=== PATIENT | female | born 1950 | race Caucasian/White ===

== ENCOUNTER → 2018-04-29 | Outpatient (CLI) | payer MEDICARE ==
--- NOTE | 2018-04-29 10:57 | MM ---
Reason for exam: screening (asymptomatic). Last mammogram was performed 2 years and 4 months ago. History: Patient is postmenopausal and is nulliparous. Physical Findings: A clinical breast exam by your physician is recommended on an annual basis and results should be correlated with mammographic findings. MG 3D Screening Mammo W/Cad Bilateral CC and MLO view(s) were taken. Prior study comparison: December 28, 2015, bilateral MG screening mammo w CAD. November 12, 2014, bilateral MG screening mammo w CAD. The breast tissue is almost entirely fat. No significant changes when compared with prior studies. ASSESSMENT: Negative, BI-RAD 1 RECOMMENDATION: Routine screening mammogram of both breasts in 1 year.
--- NOTE | 2018-04-29 14:45 | BD ---
EXAMINATION TYPE: Axial Bone Density DATE OF EXAM: 04/29/2018 COMPARISON: 12.28.2015 CLINICAL HISTORY: 68 YR OLD FEMALE.....ICD-10 CODE: M19.90 OSTEOARTHRITIS Height: 64.5 Weight: 266 FRAX RISK QUESTIONS: Family History (Parent hip fracture): YES History of Fracture in Adulthood: YES RISK FACTORS HISTORY OF: HX OF ANKLE FX....>52 YRS OLD History of Wrist SURGERY: BILAT CARPAL TUNNEL SURGERY Surgery to BOTH HIPS....BILAT THR Family History of Osteoporosis: YES, HER MOTHER AND AUNT, WITH FRACTURES Diet low in dairy products/other sources of calcium: YES A BIT LOW Postmenopausal woman: YES, AT AGE 50 Lost more than 2 inches in height since high school: YES MEDICATIONS: Thyroid Medications: YES, SYNTHROID, FOR 20 YRS Additional Medications: BP MEDS, CELEXA, ONE A DAY MULTIVITAMIN Additional History: BILAT THR, TKR, RT SHOULDER REPLACEMENT, AND BILAT WRIST SURGERY EXAM MEASUREMENTS: Bone mineral densitometry was performed using the Semmle System. Bone mineral density as measured about the Lumbar spine is: ----- L1-L4(G/cm2): 1.280 T Score Values are as follows: ----- L1: 0.9 ----- L2: 1.1 ----- L3: 0.9 ----- L4: 0.4 ----- L1-L4: 0.8 Bone mineral density has: Decreased -6.5% since study of: 12.28.2015 BOTH HIPS REPLACED.....NO HIPS SCANNED Bone mineral density about the L Wrist (g/cm2): 0.630 T Score values are as follows: -----Dist. R+U: 0.9 -----Prox. R+U: 0.1 -----Radius total: -0.4 Bone mineral density FIRST WRIST SCAN FOR PATIENT....PLEASE NOTE PRIOR CARPAL TUNNEL SURGERY TO B OTH WRISTS IMPRESSION: Normal (Values between +1 and -1 indicate normal bone mass). Consider repeating this study in 5 year s or sooner if there is some new clinical indication. NOTE: T-SCORE=SD OF THE YOUNG ADULT MEAN.
== END | disposition home or self-care (01) ==
LOC: RADMAMWWP 07:15
PROVIDERS: ATTEND Internal Medicine
DX: Z12.31 Encounter for screening mammogram for malignant neoplasm of breast (principal); M19.90 Unspecified osteoarthritis, unspecified site
CPT/HCPCS: 77063; 77067; 77080

== ENCOUNTER → 2020-03-03 | Outpatient (CLI) | payer MEDICARE ==
--- NOTE | 2020-03-04 13:34 | ECHOF ---
Referral Reason:I35.0 Nonrheumatic aortic (valve) stenosis MEASUREMENTS -------- HEIGHT: 170.2 cm WEIGHT: 118.8 kg BP: RVIDd: 4.2 cm (< 3.3) IVSd: 1.7 cm (0.6 - 1.1) LVIDd: 5.2 cm (3.9 - 5.3) LVPWd: 1.3 cm (0.6 - 1.1) IVSs: 1.5 cm LVIDs: 3.4 cm LVPWs: 2.0 cm LAESV Index (A-L): 52.77 ml/m Ao Diam: 2.5 cm (2.0 - 3.7) AV Cusp: 1.8 cm (1.5 - 2.6) MV EXCURSION: 18.742 mm (> 18.000) MV EF SLOPE: 65 mm/s (70 - 150) EPSS: 0.3 cm MV E Miguelito: 0.75 m/s MV DecT: 162 ms MV A Miguelito: 1.08 m/s MV E/A Ratio: 0.70 AR PHT: 393 ms RAP: 5.00 mmHg RVSP: 39.29 mmHg FINDINGS -------- Sinus rhythm. This was a technically adequate study. The left ventricular size is normal. There is moderate concentric left ventricular hypertrophy. O verall left ventricular systolic function is normal with, an EF between 55 - 60 %. Mitral Doppler i nflow pattern suggests diastolic filling abnormality 11.46. The right ventricle is moderately enlarged. LA is severely dilated >40 ml/m2 The right atrium is mildly enlarged. Interatrial and interventricular septum intact. The aortic valve is trileaflet and appears structurally normal. Trace to mild aortic regurgitation. There is no evidence of aortic stenosis. Mild mitral regurgitation is present. Mild tricuspid regurgitation present. There is mild pulmonary hypertension. The right ventricular systolic pressure, as measured by Doppler, is 39.29mmHg. There is no pulmonic regurgitation present. The aortic root size is normal. The inferior vena cava is mildly dilated. There is no pericardial effusion. CONCLUSIONS -------- 1. The left ventricular size is normal. 2. There is moderate concentric left ventricular hypertrophy. 3. Overall left ventricular systolic function is normal with, an EF between 55 - 60 %. 4. Mitral Doppler inflow pattern suggest diastolic filling abnormality 11.46. 5. The right ventricle is moderately enlarged. 6. LA is severely dilated >40 ml/m2 7. The right atrium is mildly enlarged. 8. Trace to mild aortic regurgitation. 9. Mild mitral regurgitation is present. 10. Mild tricuspid regurgitation present. 11. There is mild pulmonary hypertension. 12. The right ventricular systolic pressure, as measured by Doppler, is 39.29mmHg. 13. The inferior vena cava is mildly dilated. SCIENCE ANALYST: Radha Medina RDCS
== END | disposition home or self-care (01) ==
LOC: RADECHMAIN 15:33
PROVIDERS: ATTEND Internal Medicine
DX: I08.1 Rheumatic disorders of both mitral and tricuspid valves (principal); I27.20 Pulmonary hypertension, unspecified
CPT/HCPCS: 93306

== ENCOUNTER → 2020-07-06 | Outpatient (CLI) | payer MEDICARE ==
--- NOTE | 2020-07-06 11:46 | CONS ---
CONSULTATION DATE OF SERVICE: 07/06/2020. A 70-year-old lady who has been evaluated in the Sleep Center for possible obstructive sleep apnea-hypopnea syndrome. HISTORY OF PRESENT ILLNESS/SLEEP-WAKE EVALUATION: Patient usual sleep schedule from 11:30 p.m. until 7:30 a.m. Sometimes she has problems with falling asleep, although no TV in bedroom. She sleeps on the side position presently by herself so no clear information about snoring, but she wakes up from sleep 2 times with nocturia. During the day, she feels sleepiness. [place] Sleepiness Scale significantly increased to 12, she sometimes take nap in the afternoon time. She also has depression and claustrophobia. PAST MEDICAL HISTORY: Positive for hypertension, diabetes, depression, hyperlipidemia, hypothyroidism. PAST SURGICAL HISTORY: Bilateral knee replacement, bilateral hip replacement, right shoulder replacement, cholecystectomy. MEDICATIONS: Metformin 1000 mg twice a day, benazepril 20 mg once a day, atorvastatin 5 mg once a day, p.o. 30 mg once a day, Citalopram 30 mg once a day, Levothyroxine 150 mcg once a day. SOCIAL HISTORY: Positive for smoking in the past; quit about 30 years ago. Smoked about 5 pack years. Alcohol consumption rarely. FAMILY HISTORY: Fibromyalgia, asthma, pneumonia, diabetes. REVIEW OF SYSTEMS: Multiple awakenings from sleep with nocturia, sleepiness during the day. PHYSICAL EXAM: lady without distress, BP 138/61, HR 68, RR 15, height 5 feet 6 inches, weight 299 pounds, body mass index 48.2, temperature 96.0, oxygen saturation at room air 99%. OROPHARYNX: Extremely low position of soft palate. Mallampati 4. Wide neck 17.5 inches in circumference. ABDOMEN: Obese. LUNGS: Clear to percussion and to auscultation. Good air exchange. No wheezing or rhonchi. HEART: S1, S2 regular. No murmurs, gallops, or rubs. EXTREMITIES: No clubbing or cyanosis. FIBERGLASS ROVING WINDER: Awake, alert, and oriented X3. Cranial nerves 2 to 7 intact. There is no fasciculation or atrophy. noted. No focal deficits observed. IMPRESSION: 1. No information about snoring. Patient sleeps by herself, extremely low position of soft palate, Mallampati 4, multiple awakenings from sleep. Wide neck 17.5 inches sleepiness. [place] Sleepiness Scale increased to 12. Obstructive sleep apnea- hypopnea syndrome. 2. Obesity. BMI 48.2. 3. History of hypertension. 4. Diabetes mellitus. 5. History of depression. 6. Hyperlipidemia. 7. Hypothyroidism. 8. Status post bilateral knee replacement. 9. Status post bilateral hip replacement. 10.Status post right shoulder replacement. 11.Status post cholecystectomy. PLAN: 1. Polysomnography for evaluation of patient's breathing during sleep. 2. CPAP/BiPAP titration if sleep study confirms obstructive sleep apnea-hypopnea syndrome. 3. Preferable position during sleep on the side. 4. No driving if patient feels any sleepiness. 5. I will see patient for follow up visit to explain results of testing and following plan. Thank you very much for referring this patient for consultation. Sincerely, Reynaldo Doss MD, PhD, FAASM Diplomat of [place] [employer] [place] [employer] Senior Financial Accountant of [facility] [place] MMODL / PARISAN: [id number] /
== END | disposition home or self-care (01) ==
LOC: SLEEP 10:06
PROVIDERS: ATTEND Internal Medicine
DX: R53.83 Other fatigue (principal); E03.9 Hypothyroidism, unspecified; E11.9 Type 2 diabetes mellitus without complications; E66.9 Obesity, unspecified; Z68.42 Body mass index [BMI] 45.0-49.9, adult; E78.5 Hyperlipidemia, unspecified; F32.9 Major depressive disorder, single episode, unspecified; I10 Essential (primary) hypertension; Z79.84 Long term (current) use of oral hypoglycemic drugs; Z79.899 Other long term (current) drug therapy; Z83.3 Family history of diabetes mellitus; Z87.891 Personal history of nicotine dependence; Z96.611 Presence of right artificial shoulder joint; Z96.643 Presence of artificial hip joint, bilateral; Z96.653 Presence of artificial knee joint, bilateral
CPT/HCPCS: 99211

== ENCOUNTER → 2020-11-03 | Outpatient (CLI) | payer MEDICARE ==
--- NOTE | 2020-11-04 05:55 | SFUN ---
SLEEP CENTER FOLLOW UP NOTE DATE OF SERVICE: 11/03/2020 INTERVAL HISTORY: A 70-year-old lady who has been followed in Sleep Center for treatment of obstructive sleep apnea-hypopnea syndrome. Recently patient had polysomnogram which showed moderate obstructive sleep apnea and I discussed results of sleep study with the patient in detail and then she had a CPAP titration. I also described results of titration. Then she received her CPAP unit and today is her first visit after she was started on treatment with CPAP. The patient is able to use CPAP equipment every night and feels better while she is using her CPAP at night. [place] Sleepiness Scale today is 8. I checked her CPAP unit. CPAP pressure in the range 5 to 15 with average pressure is 14.2, usage is 28/30 nights for more than 4 hours with average usage 7.9 hours per night. Leak is 7 L/minute. Apnea-hypopnea index is 4, which is in normal range. CURRENT MEDICATIONS: Metformin 1000 mg twice a day, benazepril 20 mg once a day, Atorvastatin 5 mg once a day, citalopram 30 mg once a day, levothyroxine 150 mcg once a day. PHYSICAL EXAMINATION: GENERAL: Patient in no distress. BP 158/56, HR 65, RR 15, weight 293.4, temperature 97.1. Oxygen saturation at room air 99%. HEENT: PERRLA, EOMI. Oropharynx extremely low position of soft palate. Mallampati IV. NECK: Supple, no JVD. Thyroid is not palpable. LUNGS: Clear to percussion and to auscultation. Good air exchange. No wheezing or rhonchi. HEART: S1, S2 regular. No murmurs, gallops, or rubs. ABDOMEN: Obese. Soft and nontender. Bowel sounds are present. No organomegaly appreciated. EXTREMITIES: No clubbing or cyanosis. FARM MARKETER: Awake, alert, and oriented X3. Cranial nerves 2 to 7 intact. There is no fasciculation or atrophy. noted. No focal deficits observed. IMPRESSION: 1. Moderate obstructive sleep apnea-hypopnea syndrome; apnea-hypopnea index 21.7 with oxygen desaturation to 78.7%, on control with CPAP. The patient demonstrated great compliance with treatment, benefitting from treatment. 2. Obesity. 3. History of hypertension. 4. Diabetes mellitus. 5. History of depression. 6. Hyperlipidemia. 7. Hypothyroidism. 8. Status post bilateral knee replacement. 9. Status post bilateral hip replacement. 10.Status post right shoulder replacement. 11.Status post cholecystectomy. PLAN: PLAN 1. Patient will continue to use PAP equipment every night for the whole night. 2. Sleep hygiene with regular time in bed for at least 7-1/2 to 8 hours. 3. Precautions related to driving. No driving if feeling sleepiness. 4. I will maintain all necessary prescription for PAP supplies including mask, tube, filters. 5. Watching weight. 6. Follow-up visit in 6 months or earlier if patient has any problems. Thank you very much for allowing me to participate in the management of your patient. Sincerely, Reynaldo Doss MD, PhD, FAASM Diplomat of [employer] Director Of Corporate Responsibility of [facility] [place] MMLOCOL / PERRY: [id number] /
== END | disposition home or self-care (01) ==

== ENCOUNTER → 2021-05-11 | Outpatient (CLI) | payer MEDICARE ==
--- NOTE | 2021-05-11 18:20 | SFUN ---
SLEEP CENTER FOLLOW UP NOTE DATE OF SERVICE: 05/11/2021 This 71-year-old lady has been followed in Sleep Center for treatment of obstructive sleep apnea-hypopnea syndrome. The patient continues to use her CPAP equipment every night for the whole night. She sleeps better with the machine. She does not feel sleepiness during the day anymore. [place] Sleepiness Scale today is 5. I checked her CPAP unit. It is in automatic regimen. Range of the pressure is 5 to 15, average pressure 13.8. Usage was 30/30 nights for more than 4 hours, average 9 hours per night. Apnea-hypopnea index is 4.7. Sometimes for several days, apnea-hypopnea index was above normal, in the range of 10. MEDICATIONS: 1. Metformin 1000 mg twice a day. 2. Benazepril 20 mg once a day. 3. Atorvastatin 5 mg once a day. 4. Pioglitazone 30 mg once a day. 5. Citalopram 30 mg once a day. 6. Levothyroxine 150 mcg 5 times per week. PHYSICAL EXAMINATION: GENERAL: Pleasant patient in no distress. VITAL SIGNS: BP 129/71, HR 62, RR 15, height 5 feet 6 inches, weight 281.2, temperature 96.8, oxygen saturation at room air 96%. Body mass index 45.3. HEENT: PERRLA, EOMI, evaluation of oropharynx showed tongue protrudes midline. Extremely low position of soft palate; Mallampati IV. NECK: Supple, no JVD. Thyroid is not palpable. LUNGS: Clear to percussion and to auscultation. Good air exchange. No wheezing or rhonchi. HEART: S1, S2 regular. No murmurs, gallops, or rubs. ABDOMEN: Obese. EXTREMITIES: No clubbing or cyanosis. PICK UP TRUCK DRIVER: Awake, alert, and oriented X3. Cranial nerves 2 to 7 intact. There is no fasciculation or atrophy. noted. No focal deficits observed. IMPRESSION: 1. Obstructive sleep apnea-hypopnea syndrome. Patient demonstrated 100% compliance with treatment, benefitting from treatment. Sometimes she had a slightly increasing apnea-hypopnea index. 2. Obesity. 3. History of hypertension. 4. Diabetes mellitus. 5. History of depression. 6. Hyperlipidemia. 7. Hypothyroidism. 8. Status post bilateral knee replacement. 9. Status post bilateral hip replacement. 10.Status post right shoulder replacement. 11.Status post cholecystectomy. PLAN: 1. I changed pressure in the machine to the range 5 to 17. 2. Patient will continue to use PAP equipment every night for the whole night. 3. Sleep hygiene with regular time in bed for at least 7-1/2 to 8 hours. 4. Precautions related to driving. No driving if feeling sleepiness. 5. I will maintain all necessary prescription for PAP supplies including mask, tube, filters. 6. Watching weight. 7. Follow-up visit in 6 months or earlier if patient has any problems. Thank you very much for allowing me to participate in the management of your patient. Sincerely, Reynaldo Doss MD, PhD, FAASM Diplomat of [place] [employer] Sleep Medicine Board of [place] [employer] Shank Paperer of [facility] [place] ARLENE / PERRY: [id number] /
== END ==
LOC: SLEEP 14:56
PROVIDERS: ATTEND Internal Medicine
DX: G47.33 Obstructive sleep apnea (adult) (pediatric) (principal); E66.9 Obesity, unspecified; E11.9 Type 2 diabetes mellitus without complications; I10 Essential (primary) hypertension; E78.5 Hyperlipidemia, unspecified; E03.9 Hypothyroidism, unspecified; Z96.643 Presence of artificial hip joint, bilateral; Z96.653 Presence of artificial knee joint, bilateral; Z90.49 Acquired absence of other specified parts of digestive tract; Z96.611 Presence of right artificial shoulder joint; Z68.42 Body mass index [BMI] 45.0-49.9, adult; Z99.89 Dependence on other enabling machines and devices; Z79.84 Long term (current) use of oral hypoglycemic drugs; Z79.899 Other long term (current) drug therapy

== ENCOUNTER → 2021-12-05 | Outpatient (CLI) | payer MEDICARE ==
--- NOTE | 2021-12-05 15:41 | P.CNPUL ---
History of Present Illness Consult date: 12/05/21 Reason for consult: obstructive sleep apnea History of present illness: This is a 71-year-old female patient, obese, with a diagnosis of obstructive sleep apnea who is coming to the sleep center to establish her care for sleep apnea with me. The patient already has been diagnosed having obstructive sleep apnea. The patient had a initial polysomnogram on 07/19/2020 and the patient was diagnosed having moderate severe JOHANNY with an AHI of 21. The patient also had excessive number of periodic limb movement activity. Based on that, the patient was given a CPAP titration and the patient was started on CPAP therapy and the patient was offered an APAP unit which is currently set at a minimum pressure of 5 and a maximum pressure of 17.. On today's evaluation, the patient reports improvement in her sleep quality while being on CPAP therapy. To the medical Regimen Utilizing Her Machine Every Night. Her Machine Is Functional and She Is Using a Simplus Fullface Mask. I Noted That the patient's periodic limb movement improved while on CPAP therapy. Currently, she is not having any symptoms of restlessness in her lower extremities. Her sleep is not fragmented. She is able to generate and maintaining sleep without any major difficulties. No snoring. Note that the patient does not have any back particular the patient's from The case of esophageal cancer several years back. She is currently living alone. She goes to bed around 10 PM, wakes up 7 AM in the morning. She is averaging about 8 hours of sleep. She is able to initiate and maintain sleep without any major difficulties. Her current Cop[place] score is at 10. She drinks around 4-5 cups of coffee in the morning. No sleep paralysis. No hallucinations. No cataplexy. No naps during the day. The patient brought her CPAP machine and I checked a settings and the patient is currently set at a APAP mode, 5/17 cm of water. Based on his 30 day compliance evaluation, the patient has utilized the machine 28 out of 30 days on average of 8.5 hours per night and average pressure delivered vitamin she is around 14.5 cm of water. Leak is minimal at 5 L per minute. No nighttime shortness of breath. No chest pain. No breathing difficulties. No heartburn. No other cardiovascular complications for now. Her weight has remained stable. Review of Systems Eyes: denies as per HPI, denies blurred vision, denies bulging eye, denies decreased vision, denies diplopia, denies discharge, denies dry eye, denies irritation, denies itching, denies pain, denies photophobia, denies loss of peripheral vision, denies loss of vision, denies tunnel vision/blind spots Ears: deny: decreased hearing, ear discharge, earache, tinnitus Ears, nose, mouth and throat: Reports as per HPI Breasts: absent: as per HPI, change in shape, gynecomastia, masses, nipple discharge, pain, skin changes, swelling Cardiovascular: Reports as per HPI Respiratory: Reports as per HPI Gastrointestinal: Reports as per HPI Genitourinary: Reports as per HPI Menstruation: Reports as per HPI Musculoskeletal: Reports as per HPI Musculoskeletal: absent: ankle pain, ankle stiffness, ankle swelling Integumentary: Reports as per HPI Neurological: Reports as per HPI Psychiatric: Reports as per HPI Endocrine: Reports as per HPI Hematologic/Lymphatic: Reports as per HPI Allergic/Immunologic: Reports as per HPI Past Medical History Past Medical History: Diabetes Mellitus, Liver Disease, Sleep Apnea/CPAP/BIPAP, Thyroid Disorder Additional Past Medical History / Comment(s): obstructive sleep apnea with an AHI of 21, hypothyroidism, diabetes mellitus, hypertension and obesity. Past Surgical History: Cholecystectomy, Orthopedic Surgery Additional Past Surgical History / Comment(s): right shoulder replacement, right knee replacement, left knee replacement, bilateral hip replacement, gallbladder surgery/cholecystectomy Medications and Allergies Home Medications and Allergies Comment(s): levothyroxine 150 g 5 days a week Metformin 1000 mg, 1 tablet by mouth twice a day Citalopram 30 mg once a day Benazepril 20 mg by mouth daily Lipitor 5 mg by mouth daily Pioglitazone 15 mg by mouth daily Aspirin 81 mg by mouth daily Physical Exam BP is 121/73 with a pulse of 61 and the respiration of 18 temperature of 97 1 and saturation 98% on room air. Weight is 277 and the patient has a body mass index of 45.3 and the patient's Copemish score is at 10. The neck circumference is 17-3/4 of an inch. The patient appeared well nourished and normally developed. Vital signs as documented. Head exam is unremarkable. No scleral icterus or corneal arcus noted. Neck is without jugular venous distension, thyromegaly, or carotid bruits. Carotid upstrokes are brisk bilaterally. Lungs are clear to auscultation and percussion. Cardiac exam reveals the PMI to be normally sized and situated. Rhythm is regular. First and second heart sounds normal. No murmurs, rubs or gallops. Abdominal exam reveals normal bowel sounds, no masses, no organomegaly and no aortic enlargement. Extremities are nonedematous and both femoral and pedal pulses are normal.Examination of the skin revealed no evidence of significant rashes, suspicious appearing nevi or other concerning lesio ns.Neurologically, the patient is awake and alert and the patient does not have any focal neurological deficit. Cranial nerves are essentially intact. Assessment and Plan Plan: 1 obstructive sleep apnea, moderately severe, adequately treated with an APAP, 5/17 cm of water. 2 hypersomnia, recovered while on CPAP therapy. 3 obesity with a BMI of 45.3 4 hypothyroidism 5 diabetes mellitus type 2 6. Reglan movement activity, asymptomatic, no signs of any peripheral neuropathy Plan Check the patient's CPAP unit. No need for any further adjustments. Continue with the APAP mode. Keep the patient is Simplus fullface mask. Encourage weight loss. Optimize sleep hygiene measures. Treatment is successful for now. Refills will be given. The patient will see back on an annual basis regarding obstructive sleep apnea. Answered all her questions to her satisfaction.
== END ==
LOC: SLEEP 14:29
PROVIDERS: ATTEND Internal Medicine Critical Care Medicine
DX: G47.33 Obstructive sleep apnea (adult) (pediatric) (principal); Z99.89 Dependence on other enabling machines and devices; E03.9 Hypothyroidism, unspecified; E11.9 Type 2 diabetes mellitus without complications; E66.9 Obesity, unspecified; I10 Essential (primary) hypertension; Z68.42 Body mass index [BMI] 45.0-49.9, adult; Z79.84 Long term (current) use of oral hypoglycemic drugs; Z79.890 Hormone replacement therapy
CPT/HCPCS: 99211

== ENCOUNTER → 2022-08-13 | Outpatient (CLI) | payer MEDICARE ==
--- NOTE | 2022-08-13 11:52 | XR ---
EXAMINATION TYPE: XR chest 2V DATE OF EXAM: 08/13/2022 COMPARISON: NONE HISTORY: Dyspnea on exertion. TECHNIQUE: Frontal and lateral views of the chest are obtained. FINDINGS: Mild linear scarring or atelectasis in the left mid lung anteriorly is present. Right lung is clear. The cardiac silhouette size is mildly enlarged. Surgical change to the right shoulder is partially imaged. There are old healed fractures of the posterior-lateral right fifth through seventh ribs. IMPRESSION: Mild cardiomegaly and Chronic changes without suspicious acute pulmonary process.
== END | disposition home or self-care (01) ==
LOC: RADXRMAIN 11:30
PROVIDERS: ATTEND Family Medicine
DX: I51.7 Cardiomegaly (principal); R06.09 Other forms of dyspnea
CPT/HCPCS: 71046

== ENCOUNTER → 2022-11-14 | Outpatient (CLI) | payer MEDICARE ==
--- NOTE | 2022-11-14 11:40 | CA ---
Stress Echo Report Gogo Jacobson Age: 72 Gender: F : 1950 Exam Date: 11/14/2022 10:37 Exam Location: [facility] Ht (in): 67 Wt (lb): 278 Ordering Physician: Mickey Ierne MD Referring Physician: MICHELLE,, Tax Commissioner: Radha Medina RDCS Technologist Procedure CPT: Indication: R06.09 Dyspnea ICD-9 Codes: Rhythm: Patient History: Smoker, Diabetes mellitus, Hypertension, Hyperlipidemia Cardiac Medications: Medications in past 24 hours: Contrast: Lumason Stress Results Protocol: Patric Total dose(mL): 5 Exercise Duration (min:sec): 3:[address] Depression (mm): Angina Score: Bonilla Score: METS: 4.2 Resting HR: 80 Resting BP: 151 / 54 Peak HR: 130 Peak BP: 180 / 58 Max Predicted HR: 150 87 % Max Predicted HR Target HR: 128 Double Product: [id number] Stress Summary: The patient's target heart rate was achieved BP Response: Normal Reason for Termination: Reached target heart rate or work-load Cardiac Symptoms: Dyspnea ECG Analysis Resting ECG: Stress ECG: Arrhythmia: Echo Analysis Resting Echo: Peak Echo Analysis: MEASUREMENTS (Male/Female) Normal Values 2D ECHO LV Diastolic Diameter PLAX 5.7 cm 4.2 - 5.9 / 3.9 - 5.3 cm IVS Diastolic Thickness 1.1 cm 0.6 - 1.0 / 0.6 - 0.9 cm LVPW Diastolic Thickness 1.0 cm 0.6 - 1.0 / 0.6 - 0.9 cm LV Relative Wall Thickness 0.4 CONCLUSIONS Baseline heart rate 61 beats a minute, Baseline blood pressure 151/54 mmHg Baseline to EKG shows a left bundle branch block pattern Patient exercised on a Patric protocol for only 3 minutes 18 seconds She was short of breath Peak heart rate 130 beats a minute. Normal blood pressure response The patient could not walk any further Baseline 2-D echo showed mildly dilated LV with ejection fraction of about 50% with atypical septal motion With exercise there was mild augmentation overall LV contractility without any clear-cut wall motion abnormalities It recovery regional and global LV systolic function within normal Impression left bundle branch block on twelve-lead EKG at baseline Mild augmentation of LV contractility with exercise Very limited exercise capacity Dr. Ivan Menard MD (Electronically Signed) Final Date: 14 November 2022 11:39
== END | disposition home or self-care (01) ==
LOC: RADNMMAIN 09:49
PROVIDERS: ATTEND Family Medicine
DX: I44.7 Left bundle-branch block, unspecified (principal); R06.09 Other forms of dyspnea; R06.02 Shortness of breath; I51.7 Cardiomegaly
CPT/HCPCS: C8930; Q9950; 93351

== ENCOUNTER → 2023-02-18 | Outpatient (CLI) | payer MEDICARE ==
--- NOTE | 2023-02-19 09:21 | MM ---
Reason for Exam: Screening (asymptomatic). Last mammogram was performed 2 year(s) and 6 month(s) ago. Patient History: Menarche at age 13. Patient has no children. Postmenopausal. Risk Values: Cinthya 5 year model risk: 2.1%. NCI Lifetime model risk: 6.1%. Prior Study Comparison: 05/28/2019 Bilateral Screening Mammogram, [facility]. 06/06/2020 Bilateral Screening Mammogram, [facility]. 09/03/2020 Bilateral Diagnostic Mammogram, [facility]. Tissue Density: The breast tissue is almost entirely fat. Findings: Analyzed By CAD. Pattern appears symmetrical and stable. No significant interval change is evident. Couple benign scattered calcifications are within the left breast. No suspicious groups of microcalcifications, spiculated or lobular masses, architectural distortion or other secondary signs of malignancy are mammographically apparent. Overall Assessment: Benign, BI-RAD 2 Management: Screening Mammogram of both breasts in 1 year. A negative mammogram report should not preclude additional follow up of suspicious palpable abnormalities. Patient should continue monthly self breast exam. A clinical breast exam by your physician is recommended on an annual basis and results should be correlated with mammographic findings. Electronically signed and approved by: John Das D.O. Radiologis
== END | disposition home or self-care (01) ==
LOC: RADMAMWWP 14:13
PROVIDERS: ATTEND Family Medicine
DX: Z12.31 Encounter for screening mammogram for malignant neoplasm of breast (principal); Z78.0 Asymptomatic menopausal state
CPT/HCPCS: 77063; 77067

== ENCOUNTER → 2023-08-12 | Outpatient (CLI) | payer MEDICARE ==
--- NOTE | 2023-08-14 20:19 | BD ---
EXAMINATION TYPE: Axial Bone Density DATE OF EXAM: 08/12/2023 CLINICAL HISTORY: 73 years old Female. ICD-10 CODE: Z78.0 POSTMENOPAUSAL Height: 65in Weight: 236lb FRAX RISK QUESTIONS: Family History (Parent hip fracture): yes History of Fracture in Adulthood: yes Secondary Osteoporosis: RISK FACTORS HISTORY OF: Surgery to Spine/Hip(right/left)/Wrist (right/left): Jose hip replacements, jose carpal tunnel surgerie s Family History of Osteoporosis: yes Postmenopausal woman: yes Lost more than 2 inches in height since high school: yes MEDICATIONS: Thyroid Medications: Which medication: Levothyroxine How Lon+ years Additional Medications: Additional History: EXAM MEASUREMENTS: Bone mineral densitometry was performed using the [employer]ett[employer] System. Bone mineral density as measured about the Lumbar spine is: ----- L1-L4(G/cm2): 1.421 T Score Values are as follows: ----- L1: 2.9 ----- L2: 2.3 ----- L3: 2.2 ----- L4: 0.7 ----- L1-L4: 2.0 Z Score Values are as follows: ----- L1: 3.4 ----- L2: 2.9 ----- L3: 2.7 ----- L4: 1.2 ----- L1-L4: 2.5 Bone mineral density has: Increased 2.7% since study of: 04-29-18 Bone mineral density about the L Wrist (g/cm2): 0.622 T Score values are as follows: -----Dist. R+U: -1.1 -----Prox. R+U: 0.0 -----Radius total: -0.9 Z Score values are as follows: -----Dist. R+U: 0.9 -----Prox. R+U: 1.9 -----Radius total: 1.1 Bone mineral density has: Decreased -1.7% since study of: 04-29-18 IMPRESSION: Osteopenia (T Score between -2.5 and -1). There is slightly increased risk of fracture and the patient may be considered for treatment. Re-Screen 2-5 years. NOTE: T-SCORE=SD OF THE YOUNG ADULT MEAN.
== END | disposition home or self-care (01) ==
LOC: RADBDWWP 12:34
PROVIDERS: ATTEND Family Medicine
DX: M85.832 Other specified disorders of bone density and structure, left forearm (principal); Z78.0 Asymptomatic menopausal state
CPT/HCPCS: 77080

== ENCOUNTER → 2024-04-08 | Outpatient (CLI) | payer MEDICARE ==
--- NOTE | 2024-04-12 12:19 | MM ---
Reason for Exam: Screening (asymptomatic). Last mammogram was performed 1 year(s) and 2 month(s) ago. Patient History: Menarche at age 13. Patient has no children. Postmenopausal. Risk Values: Cinthya 5 year model risk: 2.1%. NCI Lifetime model risk: 5.6%. Prior Study Comparison: 06/06/2020 Bilateral Screening Mammogram, [facility]. 09/03/2020 Bilateral Diagnostic Mammogram, [facility]. 02/18/2023 Bilateral MG 3D screening mammo w/cad, [facility]. Tissue Density: The breasts are almost entirely fatty. Findings: Analyzed By CAD. Right breast: There is no suspicious group of microcalcifications or new suspicious mass. Left breast: There is no suspicious group of microcalcifications or new suspicious mass. Overall Assessment: Negative, BI-RAD 1 Management: Screening Mammogram of both breasts in [address] [facility] will attempt to contact patient to return for supplemental views and ultrasound if indicated. Patient should continue monthly self-breast exams. A clinical breast exam by your physician is recommended on an annual basis. This exam should not preclude additional follow-up of suspicious palpable abnormalities. Note on Cinthya scores and lifetime risk: 1. A Cinthya score greater than 3% is considered moderate risk. If this is the case, consider specialist referral to assess eligibility for a risk reducing agent. 2. If overall lifetime risk for the development of breast cancer is 20% or higher, the patient may qualify for future screening with alternating mammogram and breast MRI. Electronically signed and approved by: Michael Forman DO
== END | disposition home or self-care (01) ==
LOC: RADMAMWWP 08:12
PROVIDERS: ATTEND Internal Medicine
DX: Z12.31 Encounter for screening mammogram for malignant neoplasm of breast
CPT/HCPCS: 77063; 77067

== ENCOUNTER → 2025-03-04 | Outpatient (CLI) | payer MEDICARE ==
[2025-03-04 15:12] LABS: HCT 38.2 % (37.2-46.3); HGB 11.9 g/dL (12.0-15.0); MCH 28.8 pg (27.0-32.0); MCHC 31.2 g/dL (32.0-37.0); MCV 92.5 FL (80.0-97.0); NRBC Per 100 WBC 0 X 10*3/uL (0.00-0.01); Platelet Count 272 X 10*3/uL (140-440); RBC 4.13 X 10*6/uL (4.10-5.20); RDW 13.8 % (11.5-14.5); WBC 6.53 X 10*3/uL (4.50-10.00)
[2025-03-04 15:42] LABS: ALT 14 U/L (8-44); AST 18 U/L (13-35); Albumin 4.0 g/dL (3.8-4.9); Albumin/Globulin Ratio 1.82 Ratio (1.60-3.17); Alkaline Phosphatase 75 U/L (41-126); Amylase 40 U/L (23-121); Anion Gap 11.50 mmol/L (4.00-12.00); BUN/Creat Ratio 23.89 Ratio (12.00-20.00); Blood Urea Nitrogen 21.5 mg/dL (9.0-27.0); Calcium 9.2 mg/dL (8.7-10.3); Carbon Dioxide 24.5 mmol/L (21.6-31.8); Chloride 102 mmol/L (96-109); Globulin 2.2 g/dL (1.6-3.3); Glucose 109 mg/dL (70-110); Lipase 30 U/L (14-63); Potassium 4.5 mmol/L (3.5-5.5); Sodium 138 mmol/L (135-145); Total Protein 6.2 g/dL (6.2-8.2)
[2025-03-04 19:45] LABS: Gliadin AB IgG, Deaminated Negative (Negative); Gliadin AB IgG, Unit <0.4 U/mL
[2025-03-04 21:26] LABS: Gliadin AB IgA, Deaminated Negative (Negative); Gliadin AB IgA, Unit <0.5 U/mL
== END | disposition home or self-care (01) ==
LOC: LABWHC1 10:26
PROVIDERS: ATTEND Family Medicine
DX: R19.7 Diarrhea, unspecified (principal)
CPT/HCPCS: 36415; 80053; 82150; 82656; 82705; 83516; 83690; 84443; 85027; 87045; 87046; 87328; 87329